=== PATIENT | male | born 1980 | race Caucasian/White ===

== ENCOUNTER 2021-02-01 09:28 | Outpatient (CLI) | payer MEDICARE, SELFPAY | END 2021-02-01 09:29 | disposition home or self-care (01) | LOC: ANHCOVIDVC 09:29 | PROVIDERS: PCP Internal Medicine | DX: Z23 Encounter for immunization (principal) | CPT/HCPCS: 0001A; 91300 ==

== ENCOUNTER 2021-02-22 09:24 | Outpatient (CLI) | payer MEDICARE, SELFPAY | END 2021-02-22 09:25 | disposition home or self-care (01) | LOC: ANHCOVIDVC 09:24 | PROVIDERS: PCP Internal Medicine | DX: Z23 Encounter for immunization (principal) | CPT/HCPCS: 0002A; 91300 ==

== ENCOUNTER 2022-09-21 12:53 | Emergency (ER) | payer MEDICARE, SELFPAY ==
--- NOTE | 2022-09-21 13:01 | ED.UPPEXIN ---
HPI - Extremity Injury (Upper) General Chief Complaint: Extremity Injury, Upper Stated Complaint: FALL/INJURED FINGER Time Seen by Provider: 09/21/22 13:09 Source: patient and RN notes reviewed Mode of arrival: ambulatory Limitations: no limitations History of Present Illness HPI narrative: 42-year-old male presents with concern for wounds to the right hand, right knee. Reports just prior to arrival he fell at home. He reports bleeding to the 3rd and 4th digits, an abrasion to the knee, small abrasion to the head. He denies any loss of consciousness, headache, nausea, vomiting, retrograde amnesia. complaint: injury to: right and finger Related Data Allergies Allergy/AdvReac Type Severity Reaction Status Date / Time Penicillins Allergy Mild rash Verified 09/21/22 13:01 Review of Systems Review of Systems: GENERAL: Well-appearing, well-nourished, and in no acute distress. HEAD: Normocephalic, atraumatic. EYES: PERRLA, conjunctivae clear, and EOMI. ENT: Mucous membranes moist. NECK: Supple. No lymphadenopathy CHEST: Clear to auscultation. No respiratory distress. HEART: Regular rate and rhythm. SKIN: Warm, dry. 1.5 cm x 1 cm skin avulsion noted to the 3rd digit of the right hand,, 1.5 x 1 cm skin avulsion noted to the 2nd digit of right hand. Superficial abrasion noted to the right knee, superficial scratch noted to the right forehead. NEURO: Alert and oriented x3. PSYCH: Normal mood and affect All systems reviewed & are unremarkable except as noted in HPI and below PMFSH Past Medical History Medical History Lipidemia Family History Family History Mother Family history of thyroid disease Father Hypertension Sibling Hypertension Social History Social History Smoking status: Never smoker Second hand tobacco smoke exposure: No Alcohol intake: never Substance use: never Substance use type: does not use Additional living arrangements comments: MOM Gender identity (if verbalized by the patient): Male Comments At time of signature, agree with nursing past medical, surgical, social and family history. There is no relevant family history pertinent to the presenting complaint Exam Narrative: GENERAL: Well-appearing, well-nourished, and in no acute distress. HEAD: Normocephalic, atraumatic. EYES: PERRLA, conjunctivae clear NECK: Supple. CHEST: Speaks in full sentences. No respiratory distress. HEART: Regular rate and rhythm. Normal and equal peripheral pulses. EXTREMITIES: [Xxx] has normal strength and sensation, normal range of motion. No edema or ecchymosis. 5/5 strength with [xxx] flexion and extension. Normal sensation with sensitivity to light touch and pain. No point tenderness. No open wounds, no skin tenting, no devitalized tissue or atrophy, no trophic changes, no obvious deformity, alignment normal, nearby joints and structures intact. Distal pulses palpable and equal bilaterally, skin warm, dry, pink. Capillary refill less than 3 seconds. SKIN: Warm, dry, no rash. NEURO: Alert and oriented x3. PSYCH: Normal mood and affect Course Course Emergency Course: Surgicel applied I had to skin avulsions, hemostasis achieved, nonstick dressing and a tube gauze applied. Tetanus prophylaxis given Patient is aware of diagnosis, understands and agrees to treatment plan. Anticipatory guidance given. Patient agrees to follow-up as directed and is aware of reasons to seek care at the emergency department. Portions of this record may have been created with voice recognition software Level of Care: Express Care Visit Vital Signs Vital signs: Reviewed. MDM - Extremity Injury (Upper) MDM Narrative Medical decision making narrative: CCHR score: Signs of open or depressed skull fracture: No Mcgraw sign/raccoon eyes: No 2 or more episodes of vo
[2022-09-21 13:02] VITALS: BP 154/97; PULSE 92; RESP 16; TEMP 36.9; O2SAT 97
[2022-09-21] MEDS: TETANUS,DIPHTHERIA,AC PERTUSSIS ADULT (0.5 ML) BOOSTRIX IM (13:44)
== END 2022-09-21 13:57 | disposition home or self-care (01) ==
PROVIDERS: Emergency Provider Nurse Practitioner; PCP Family Medicine
DX: S61.202A Unspecified open wound of right middle finger without damage to nail, initial encounter (principal); S61.204A Unspecified open wound of right ring finger without damage to nail, initial encounter; W19.XXXA Unspecified fall, initial encounter; E78.5 Hyperlipidemia, unspecified; Z23 Encounter for immunization
CPT/HCPCS: 90471; 90715; 99212; G0463

== ENCOUNTER 2023-04-06 11:11 | Outpatient (CLI) | payer MEDICARE, SELFPAY ==
[2023-04-06 13:00] LABS: Alanine Aminotransferase 119 U/L (6-50); Albumin Level 4.8 g/dL (3.5-5.1); Alkaline Phosphatase 83 U/L (38-126); Anion Gap 6 mmol/L (8-16); Aspartate Amino Transferase 70 U/L (17-59); Bilirubin,Total 1.2 mg/dL (0.2-1.3); Blood Urea Nitrogen 15 mg/dL (9-20); Calcium 8.8 mg/dL (8.4-10.2); Carbon Dioxide 28 mmol/L (22-30); Chloride 105 mmol/L (98-107); Cholesterol 192 mg/dL (0-200); Estimated Glomerular Filt Rate > 60; Glucose 109 mg/dL (65-110); HDL Direct 47 mg/dL; Potassium 4.2 mmol/L (3.4-5.0); Sodium 139 mmol/L (137-145); Triglycerides 198 mg/dL (<150)
[2023-04-06 13:04] LABS: Hemoglobin A1C 5.4 % (<5.7)
[2023-04-06 13:18] LABS: LDL Cholesterol Direct 121 mg/dL
== END 2023-04-06 11:12 | disposition home or self-care (01) ==
LOC: ANHGOSHLAB 11:12
PROVIDERS: PCP Family Medicine; Visit Provider Family Medicine
DX: E78.2 Mixed hyperlipidemia (principal); Z13.220 Encounter for screening for lipoid disorders; R73.09 Other abnormal glucose; Z13.228 Encounter for screening for other metabolic disorders
CPT/HCPCS: 36415; 80053; 80061; 83036

== ENCOUNTER 2024-04-08 11:41 | Outpatient (CLI) | payer MEDICARE, SELFPAY ==
[2024-04-08 19:34] LABS: Alanine Aminotransferase 78 U/L (6-50); Albumin Level 4.8 g/dL (3.5-5.1); Alkaline Phosphatase 95 U/L (38-126); Anion Gap 8 mmol/L (4-12); Aspartate Amino Transferase 45 U/L (17-59); Blood Urea Nitrogen 13 mg/dL (9-20); Calcium 9.4 mg/dL (8.4-10.2); Carbon Dioxide 28 mmol/L (22-30); Chloride 106 mmol/L (98-107); Cholesterol 167 mg/dL (0-200); Estimated Glomerular Filt Rate > 60; Glucose 105 mg/dL (65-110); HDL Direct 45 mg/dL; Potassium 4.2 mmol/L (3.4-5.0); Sodium 142 mmol/L (137-145); Triglycerides 96 mg/dL (<150)
[2024-04-08 19:44] LABS: LDL Cholesterol Direct 104 mg/dL
[2024-04-08 20:05] LABS: Prostate Specific Antigen 0.6 ng/mL (< OR = 4.0)
== END 2024-04-08 11:42 | disposition home or self-care (01) ==
LOC: ANHGOSHLAB 11:42
PROVIDERS: PCP Family Medicine; Visit Provider Family Medicine
DX: E78.5 Hyperlipidemia, unspecified (principal); Z13.228 Encounter for screening for other metabolic disorders; Z13.220 Encounter for screening for lipoid disorders; Z12.5 Encounter for screening for malignant neoplasm of prostate
CPT/HCPCS: 36415; 80053; 80061; 84153; G0103

== ENCOUNTER 2024-12-31 10:15 | Outpatient (CLI) | payer MEDICARE, SELFPAY ==
[2024-12-31 14:08] LABS: Basophils Percent Auto 0.4 % (0.2-1.2); Eosinophils Absolute Auto 0.1 K/mm3 (0-0.3); Eosinophils Percent Auto 1.7 % (0-4.4); Hematocrit 49.6 % (42.0-52.0); Hemoglobin 16.2 g/dL (14.0-18.0); Immature Granulocyte Absolute 0.02 K/mm3 (0.00-0.031); Immature Granulocyte Percent A 0.4 % (0-0.5); Lymphocytes Absolute Auto 1.36 K/mm3 (0.9-3.2); Lymphocytes Percent Auto 25.3 % (18.3-44.2); Mean Corpuscular HGB Conc 32.7 g/dl (32-36); Mean Corpuscular Hemoglobin 27.8 pg (26-34); Mean Corpuscular Volume 85.2 fl (80-100); Mean Platelet Volume 9.8 fl (7.4-10.4); Monocytes Absolute Auto 0.4 K/mm3 (0.1-0.6); Monocytes Percent Auto 7.4 % (2.6-8.5); Neutrophils Absolute Auto 3.5 K/mm3 (1.3-6.7); Neutrophils Percent Auto 64.8 % (45.5-73.1); Platelet Count Result 235 k/mm3 (150-375); Red Blood Count 5.82 M/mm3 (4.6-6.20); White Blood Count 5.4 K/mm3 (4.5-10.0)
[2024-12-31 16:31] LABS: Alanine Aminotransferase 93 U/L (6-50); Albumin Level 4.7 g/dL (3.5-5.1); Alkaline Phosphatase 89 U/L (38-126); Anion Gap 9 mmol/L (4-12); Aspartate Amino Transferase 49 U/L (17-59); Bilirubin,Total 1.2 mg/dL (0.2-1.3); Blood Urea Nitrogen 18 mg/dL (9-20); Calcium 9.4 mg/dL (8.4-10.2); Carbon Dioxide 29 mmol/L (22-30); Chloride 103 mmol/L (98-107); Cholesterol 186 mg/dL (0-200); Estimated Glomerular Filt Rate > 60; Glucose 95 mg/dL (65-110); HDL Direct 43 mg/dL; Potassium 4.1 mmol/L (3.4-5.0); Sodium 141 mmol/L (137-145); Triglycerides 197 mg/dL (<150)
[2024-12-31 16:42] LABS: LDL Cholesterol Direct 113 mg/dL
[2024-12-31 16:58] LABS: Vitamin D 25 Hydroxy < 12.8 ng/mL
[2024-12-31 17:52] LABS: Hemoglobin A1C 5.7 % (<5.7)
== END 2024-12-31 10:16 | disposition home or self-care (01) ==
LOC: ANHGOSHLAB 10:17
PROVIDERS: PCP Family Medicine; Visit Provider Family Medicine
DX: E78.5 Hyperlipidemia, unspecified (principal); I10 Essential (primary) hypertension; E53.8 Deficiency of other specified B group vitamins; E55.9 Vitamin D deficiency, unspecified; Z00.00 Encounter for general adult medical examination without abnormal findings; R73.9 Hyperglycemia, unspecified
CPT/HCPCS: 36415; 80053; 80061; 82306; 82607; 83036; 84443; 85025

== ENCOUNTER 2025-09-29 11:36 | Outpatient (CLI) | payer MEDICARE, SELFPAY ==
[2025-09-29 13:10] LABS: Hematocrit 49.5 % (42.0-52.0); Hemoglobin 16.3 g/dL (14.0-18.0); Immature Granulocyte Percent A 0.3 % (0-0.5); Lymphocytes Absolute Auto 1.49 K/mm3 (0.9-3.2); Mean Corpuscular HGB Conc 32.9 g/dl (32-36); Mean Corpuscular Hemoglobin 27.8 pg (26-34); Mean Corpuscular Volume 84.3 fl (80-100); Nucleated Red Blood Cells Absolute Auto 0.000 K/mm3 (0.0-0.012); Nucleated Red Blood Cells Perc 0.0 % (0.0-0.2); Platelet Count Result 231 k/mm3 (150-375); Red Blood Count 5.87 M/mm3 (4.6-6.20); White Blood Count 6.5 K/mm3 (4.5-10.0)
[2025-09-29 13:11] LABS: Alanine Aminotransferase 99 U/L (6-50); Albumin Level 4.7 g/dL (3.5-5.1); Alkaline Phosphatase 78 U/L (38-126); Anion Gap 7 mmol/L (4-12); Aspartate Amino Transferase 74 U/L (17-59); Bilirubin,Total 1.0 mg/dL (0.2-1.3); Blood Urea Nitrogen 17 mg/dL (9-20); Calcium 9.0 mg/dL (8.4-10.2); Carbon Dioxide 27 mmol/L (22-30); Chloride 104 mmol/L (98-107); Cholesterol 214 mg/dL (0-200); Estimated Glomerular Filt Rate > 60; Glucose 103 mg/dL (65-110); HDL Direct 43 mg/dL; Potassium 4.1 mmol/L (3.4-5.0); Sodium 138 mmol/L (137-145); Total Protein 8.0 g/dL (6.3-8.2); Triglycerides 307 mg/dL (<150)
[2025-09-29 13:46] LABS: Prostate Specific Antigen 0.7 ng/mL (< OR = 4.0)
[2025-09-29 13:50] LABS: Thyroid Stimulating Hormone Reflex 1.130 uIU/mL (0.465-4.68)
[2025-09-29 16:07] LABS: Vitamin B12 944.0 pg/mL (239-931)
[2025-09-29 19:05] LABS: Hemoglobin A1C 5.3 % (<5.7)
== END 2025-09-29 11:37 | disposition home or self-care (01) ==
LOC: ANHGOSHLAB 11:37
PROVIDERS: PCP Family Medicine; Visit Provider Family Medicine
DX: R73.9 Hyperglycemia, unspecified (principal); E53.8 Deficiency of other specified B group vitamins; I10 Essential (primary) hypertension; E55.9 Vitamin D deficiency, unspecified; Z00.00 Encounter for general adult medical examination without abnormal findings; E78.5 Hyperlipidemia, unspecified; Z12.5 Encounter for screening for malignant neoplasm of prostate; Z15.01 Genetic susceptibility to malignant neoplasm of breast; Z15.09 Genetic susceptibility to other malignant neoplasm
CPT/HCPCS: 36415; 80053; 80061; 82306; 82607; 83036; 84153; 84443; 85025; G0103

== ENCOUNTER 2025-11-10 11:28 | Outpatient (CLI) | payer MEDICARE, SELFPAY ==
[2025-11-10 18:48] LABS: INR 1.0; Prothrombin Time 13.6 Seconds (11.1-14.7)
[2025-11-10 19:15] LABS: Hematocrit 48.1 % (42.0-52.0); Hemoglobin 16.2 g/dL (14.0-18.0); Mean Corpuscular HGB Conc 33.7 g/dl (32-36); Mean Corpuscular Hemoglobin 28.1 pg (26-34); Mean Corpuscular Volume 83.4 fl (80-100); Platelet Count Result 233 k/mm3 (150-375); Red Blood Count 5.77 M/mm3 (4.6-6.20); White Blood Count 5.2 K/mm3 (4.5-10.0)
[2025-11-10 19:21] LABS: Alanine Aminotransferase 83 U/L (6-50); Albumin Level 4.8 g/dL (3.5-5.1); Alkaline Phosphatase 83 U/L (38-126); Anion Gap 6 mmol/L (4-12); Aspartate Amino Transferase 52 U/L (17-59); Bilirubin,Total 0.9 mg/dL (0.2-1.3); Blood Urea Nitrogen 16 mg/dL (9-20); Calcium 9.2 mg/dL (8.4-10.2); Carbon Dioxide 27 mmol/L (22-30); Chloride 106 mmol/L (98-107); Estimated Glomerular Filt Rate > 60; Glucose 102 mg/dL (65-110); Potassium 3.9 mmol/L (3.4-5.0); Sodium 139 mmol/L (137-145); Total Protein 8.0 g/dL (6.3-8.2)
[2025-11-10 19:37] LABS: Iron 116 ug/dL (49-181)
[2025-11-10 20:05] LABS: Hepatitis B Surface Antigen Negative (Negative)
[2025-11-10 20:13] LABS: Percent Iron Saturation 40 % (20-50)
[2025-11-10 20:18] LABS: Ferritin 189.00 ng/mL (17.9-464)
[2025-11-10 20:22] LABS: Hepatitis B Surface Anti Res Negative
[2025-11-11 14:09] LABS: ANA by IFA Rfx Titer/Pattern Negative (.)
== END 2025-11-10 11:29 | disposition home or self-care (01) ==
PROVIDERS: PCP Family Medicine; Visit Provider Nurse Practitioner Family
DX: R74.8 Abnormal levels of other serum enzymes (principal); K76.0 Fatty (change of) liver, not elsewhere classified
CPT/HCPCS: 36415; 80053; 82103; 82390; 82728; 83540; 83550; 85027; 85610; 86015; 86038; 86376; 86381; 86706; 86803; 87340